=== PATIENT | male | born 1955 | race Caucasian/White ===

== ENCOUNTER 2017-09-12 11:16 | Emergency (ER) | payer BC ==
--- NOTE | 2017-09-12 12:30 | CR ---
EXAMINATION: Cervical and thoracic spine HISTORY: Pain COMPARISON: None TECHNIQUE: AP and lateral views obtained of the cervical and thoracic spine FINDINGS: There is minimal anterolisthesis of C4 on C5. Bone mineralization is normal. No fracture or acute oss eous abnormality. Prevertebral soft tissues appear normal. Mild marginal osteophytes are noted. The visualized thoracic spinal alignment is normal. The vertebral body heights appear maintained. Thi s spaces are preserved. Bone mineralization is normal. Mild marginal osteophytes. IMPRESSION: Mild degenerative changes without acute findings.
--- NOTE | 2017-09-12 12:51 | EDM.PDOC ---
ED HPI GENERAL MEDICAL PROBLEM - General Chief Complaint: Neck Problem Stated Complaint: NECK PAIN Time Seen by Provider: 09/12/17 11:31 Source of Information: Reports: Patient History Limitations: Reports: No Limitations - History of Present Illness INITIAL COMMENTS - FREE TEXT/NARRATIVE: HISTORY AND PHYSICAL: []61-year-old male presenting with concerns over neck discomfort History of Present Illness: []Admission has difficulty with his neck chronically he does exercises which generally keeps this in place. Patient rates his pain as a 1-2/10 he takes Yaneli aspirin without complete relief. Patient used to be on Xarelto and had been switched to warfarin he has not followed up with a primary care doctor for an appointment in a week with Dr. Quevedo. History of DVTs. 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 He experienced sitting for longer periods in the truck been normal and his neck is causing him pain. Review of Systems: As per history of present illness and below otherwise all systems reviewed and negative. Past medical history: As per history of present illness and as reviewed below otherwise noncontributory. Surgical history: As per history of present illness and as reviewed below otherwise noncontributory. Social history: No reported history of drug or alcohol abuse. Family history: As per history of present illness and as reviewed below otherwise noncontributory. Physical exam: Alert and oriented male who is answering questions appropriately no shortness of breath noted with full sentences. HEENT: Atraumatic, normocehpalic, pupils reactive, negative for conjunctival pallor or scleral icterus, mucous membranes moist, throat clear, neck supple, nontender, trachea midline. Mild tenderness noted with palpation to the vertebrae Lungs: Clear to auscultation, breath sounds equal bilaterally, chest non tender. Heart: S1S2, regular, negative for clicks, rubs, or JVD. Abdomen: Soft, nondistended, nontender. Negative for masses or hepatossplenmegaly. Negative for costovertebral tenderness. Pelvis: Stable nontender. Genitourinary: Deferred. Rectal: Deferred Extremities: Atraumatic, negative for cords or calf pain. Neurovascular unremarkable. Neuro: Awake, alert, oriented. Cranial nerves II through XII unremarkable. Cerebellum unremarkable. Motor and sensory unremarkable throughout. Exam nonfocal. Diagnostics: [X-ray cervical spine] X-ray thoracic spine Therapeutics: [] Impression: [Degenerative disc disease] Plan: [] Definitive disposition and diagnosis as appropriate pending reevaluation and review of above. Onset: Today, Sudden Duration: Chronic Location: Reports: Neck neck Pain Score (Numeric/FACES): 0 - Related Data Allergies Allergy/AdvReac Type Severity Reaction Status Date / Time cephalexin [From Keflex] Allergy Anaphylactic Verified 09/12/17 11:26 Shock Home Meds: Home Meds Cyclobenzaprine [Flexeril] 10 mg PO BEDTIME #10 tab 09/12/17 [Rx] Diclofenac Sodium [IJD: Diclofenac Sodium] 75 mg PO .TWICE DAILY W MEALS #20 tab.ec 09/12/17 [Rx] Rivaroxaban [Xarelto] 1 tab PO DAILY 09/12/17 [History] Warfarin [Coumadin] 1 mg PO DAILY 09/12/17 [History] amLODIPine [Norvasc] 5 mg PO DAILY 09/12/17 [History] Past Medical History HEENT History: Reports: None Cardiovascular History: Reports: Hypertension Respiratory History: Reports: None Gastrointestinal History: Reports: None Genitourinary History: Reports: None Musculoskeletal History: Reports: None Neurological History: Reports: None Psychiatric History: Reports: None Endocrine/Metabolic History: Reports: None Hematologic History: Reports: Other (See Below) Other Hematologic History: DVT Immunologic History: Reports: None Oncologic (Cancer) History: Reports: None Dermatologic History: Reports: None - Infectious Disease History Infectious Disease History: Reports: Chicken Pox, Measles, Mumps - Past Surgical History Head Surgeries/Procedures: Reports: None HEENT Surgical History: Reports: None Cardiovascular Surgical History: Reports: None Respiratory Surgical History: Reports: None GI Surgical History: Reports: None Male Surgical History: Reports: None Endocrine Surgical History: Reports: None Neurological Surgical History: Reports: None Musculoskeletal Surgical History: Reports: None Oncologic Surgical History: Reports: None Dermatological Surgical History: Reports: None Social & Family History - Family History Family Medical History: Noncontributory - Tobacco Use Smoking Status *Q: Never Smoker Second Hand Smoke Exposure: No - Caffeine Use Caffeine Use: Reports: None - Recreational Drug Use Recreational Drug Use: No ED ROS GENERAL - Review of Systems Review Of Systems: ROS reveals no pertinent complaints other than HPI. ED EXAM, UPPER BACK/NECK PAIN - Physical Exam Exam: See Below (see dictation) Course - Vital Signs Last Recorded V/S: Last Vital Signs Temp 36.0 C 09/12/17 11:29 Pulse 67 09/12/17 11:29 Resp 18 09/12/17 11:29 BP 147/104 H 09/12/17 11:29 Pulse Ox 96 09/12/17 11:29 Departure - Departure Time of Disposition: 12:54 Disposition: Home, Self-Care 01 Condition: Good Clinical Impression: Degenerative disc disease Qualifiers: Spinal region: unspecified cervical region Qualified Code(s): M50.30 - Other cervical disc degeneration, unspecified cervical region - Discharge Information Prescriptions: Cyclobenzaprine [Flexeril] 10 mg PO BEDTIME #10 tab Diclofenac Sodium [IJD: Diclofenac Sodium] 75 mg PO .TWICE DAILY W MEALS #20 tab.ec Instructions: Osteoarthritis, Degenerative Disk Disease Referrals: PCP,None [Primary Care Provider] - Forms: ED Department Discharge Additional Instructions: The following information is given to patients seen in the emergency department who are being discharged to home. This information is to outline your options for follow-up care. We provide all patients seen in our emergency department with a follow-up referral. The need for follow-up, as well as the timing and circumstances, are variable depending upon the specifics of your emergency department visit. If you don't have a primary care physician on staff, we will provide you with a referral. We always advise you to contact your personal physician following an emergency department visit to inform them of the circumstance of the visit and for follow-up with them and/or the need for any referrals to a consulting specialist. The emergency department will also refer you to a specialist when appropriate. This referral assures that you have the opportunity for followup care with a specialist. All of these measure are taken in an effort to provide you with optimal care, which includes your followup. Under all circumstances we always encourage you to contact your private physician who remains a resource for coordinating your care. When calling for followup care, please make the office aware that this follow-up is from your recent emergency room visit. If for any reason you are refused follow-up, please contact the [facility] emergency department at and asked to speak to the emergency department charge nurse. He was found to have some degenerative disc disease will likely lead to osteoarthritis Continue with the exercise program that you have initiated Medications of diclofenac for pain and Flexeril for muscle spasm before bed may be beneficial Keep your upcoming appointment with Dr. Lombardi.
== END 2017-09-12 13:04 | disposition home or self-care (01) ==
LOC: MW.ED 11:16
DX: M50.30 Other cervical disc degeneration, unspecified cervical region (principal); I10 Essential (primary) hypertension; Z88.1 Allergy status to other antibiotic agents; Z79.01 Long term (current) use of anticoagulants; Z79.899 Other long term (current) drug therapy; Z86.718 Personal history of other venous thrombosis and embolism
CPT/HCPCS: 72040; 72040-26; 72070; 72070-26; 99283

== ENCOUNTER 2017-10-17 23:21 | Emergency (ER) | payer BC ==
--- NOTE | 2017-10-17 23:42 | EDM.PDOC ---
ED HPI GENERAL MEDICAL PROBLEM - General Chief Complaint: ENT Problem Stated Complaint: TOOTH/EAR INFECTION Time Seen by Provider: 10/17/17 23:42 Source of Information: Reports: Patient - History of Present Illness INITIAL COMMENTS - FREE TEXT/NARRATIVE: HISTORY AND PHYSICAL: History of present illness: Patient presents with pain 2 out of 10 associated with the rear molar he does have a dental appointment scheduled for October 25 implants to follow with this, he is tender along the lower jawline is concerned about possible ear infection and as he has her discomfort no real pain but is just more aware as it feels full, on exam he does have an effusion no otitis media No fever nausea vomiting chills sweats no chest pain shortness breath headache dizziness palpitation no bowel or urine symptoms [] Review of systems: As per history of present illness and below otherwise all systems reviewed and negative. Past medical history: As per history of present illness and as reviewed below otherwise noncontributory. Surgical history: As per history of present illness and as reviewed below otherwise noncontributory. Social history: No reported history of drug or alcohol abuse. Family history: As per history of present illness and as reviewed below otherwise noncontributory. Physical exam: HEENT: Atraumatic, normocephalic, pupils reactive, negative for conjunctival pallor or scleral icterus, mucous membranes moist, throat clear, neck supple, nontender, trachea midline. Tender along right lower jawline with palpation consistent with early abscess formation dentition is intact grossly Lungs: Clear to auscultation, breath sounds equal bilaterally, chest nontender. Heart: S1S2, regular, negative for clicks, rubs, or JVD. Abdomen: Soft, nondistended, nontender. Negative for masses or hepatosplenomegaly. Negative for costovertebral tenderness. Pelvis: Stable nontender. Genitourinary: Deferred. Rectal: Deferred. Extremities: Atraumatic, negative for cords or calf pain. Neurovascular unremarkable. Neuro: Awake, alert, oriented. Cranial nerves II through XII unremarkable. Cerebellum unremarkable. Motor and sensory unremarkable throughout. Exam nonfocal. Diagnostics: [Clinical ] Therapeutics: [Oxacillin 500 mg by mouth 3 times a day #30 no refill ] Impression: [Dental pain Right ear effusion ] Definitive disposition and diagnosis as appropriate pending reevaluation and review of above. tooth Pain Score (Numeric/FACES): 2 - Related Data Allergies Allergy/AdvReac Type Severity Reaction Status Date / Time cephalexin [From Keflex] Allergy Anaphylactic Verified 10/17/17 23:41 Shock Home Meds: Home Meds Diclofenac Sodium [IJD: Diclofenac Sodium] 75 mg PO .TWICE DAILY W MEALS #20 tab.ec 09/12/17 [Rx] Rivaroxaban [Xarelto] 1 tab PO DAILY 09/12/17 [History] amLODIPine [Norvasc] 5 mg PO DAILY 09/12/17 [History] Past Medical History HEENT History: Reports: None Cardiovascular History: Reports: Hypertension Respiratory History: Reports: None Gastrointestinal History: Reports: None Genitourinary History: Reports: None Musculoskeletal History: Reports: None Neurological History: Reports: None Psychiatric History: Reports: None Endocrine/Metabolic History: Reports: None Hematologic History: Reports: Other (See Below) Other Hematologic History: DVT Immunologic History: Reports: None Oncologic (Cancer) History: Reports: None Dermatologic History: Reports: None - Infectious Disease History Infectious Disease History: Reports: Chicken Pox, Measles, Mumps - Past Surgical History Head Surgeries/Procedures: Reports: None HEENT Surgical History: Reports: None Cardiovascular Surgical History: Reports: None Respiratory Surgical History: Reports: None GI Surgical History: Reports: None Male Surgical History: Reports: None Endocrine Surgical History: Reports: None Neurological Surgical History: Reports: None Musculoskeletal Surgical History: Reports: None Oncologic Surgical History: Reports: None Dermatological Surgical History: Reports: None Social & Family History - Family History Family Medical History: Noncontributory - Tobacco Use Smoking Status *Q: Never Smoker Second Hand Smoke Exposure: No - Caffeine Use Caffeine Use: Reports: None - Recreational Drug Use Recreational Drug Use: No ED ROS GENERAL - Review of Systems Review Of Systems: ROS reveals no pertinent complaints other than HPI. ED EXAM, GENERAL - Physical Exam Exam: See Below Course - Vital Signs Last Recorded V/S: Last Vital Signs Temp 98 F 10/17/17 23:21 Pulse 55 L 10/17/17 23:21 Resp 18 10/17/17 23:21 BP 155/84 H 10/17/17 23:21 Pulse Ox 97 10/17/17 23:21 Departure - Departure Time of Disposition: 23:47 Disposition: Home, Self-Care 01 Condition: Good Clinical Impression: Pain, dental - Discharge Information Referrals: Shelton Lombardi MD [Primary Care Provider] - Forms: ED Department Discharge Additional Instructions: Medication as prescribed Follow-up with dentist as scheduled Return if symptoms persist or worsen or new concerning symptoms develop The following information is given to patients seen in the emergency department who are being discharged to home. This information is to outline your options for follow-up care. We provide all patients seen in our emergency department with a follow-up referral. The need for follow-up, as well as the timing and circumstances, are variable depending upon the specifics of your emergency department visit. If you don't have a primary care physician on staff, we will provide you with a referral. We always advise you to contact your personal physician following an emergency department visit to inform them of the circumstance of the visit and for follow-up with them and/or the need for any referrals to a consulting specialist. The emergency department will also refer you to a specialist when appropriate. This referral assures that you have the opportunity for follow-up care with a specialist. All of these measure are taken in an effort to provide you with optimal care, which includes your follow-up. Under all circumstances we always encourage you to contact your private physician who remains a resource for coordinating your care. When calling for follow-up care, please make the office aware that this follow-up is from your recent emergency room visit. If for any reason you are refused follow-up, please contact the [facility] emergency department at and asked to speak to the emergency department charge nurse.
== END 2017-10-17 23:58 | disposition home or self-care (01) ==
LOC: MW.ED 23:21
DX: K08.89 Other specified disorders of teeth and supporting structures (principal); H65.91 Unspecified nonsuppurative otitis media, right ear; Z88.1 Allergy status to other antibiotic agents; Z79.899 Other long term (current) drug therapy
CPT/HCPCS: 99282

== ENCOUNTER 2020-10-03 06:31 | Emergency (ER) | payer BC ==
--- NOTE | 2020-10-03 07:14 | EDM.PDOC ---
ED HPI GENERAL MEDICAL PROBLEM - General Chief Complaint: Respiratory Problem Stated Complaint: COUGH Time Seen by Provider: 10/03/20 07:14 Source of Information: Reports: Patient History Limitations: Reports: No Limitations - History of Present Illness INITIAL COMMENTS - FREE TEXT/NARRATIVE: 64 Male past medical history hypertension presents for cough. Patient notes that he was recently started on amoxicillin for an abscessed tooth and concomitant bronchitis. He notes that last night he was unable to sleep secondary to cough. He has tried Mucinex and Altoids. He denies any shortness of breath, chest pain, fevers. - Related Data Allergies Allergy/AdvReac Type Severity Reaction Status Date / Time cephalexin [From Keflex] Allergy Anaphylactic Verified 10/03/20 06:45 Shock Home Meds: Home Meds Rivaroxaban [Xarelto] 20 mg PO DAILY 09/12/17 [History] amLODIPine [Norvasc] 10 mg PO DAILY 09/12/17 [History] Amoxicillin 500 mg PO TID 10/03/20 [History] Benzonatate [Tessalon Perle] 100 mg PO TID PRN #20 capsule 10/03/20 [Rx] Past Medical History HEENT History: Reports: None Cardiovascular History: Reports: Blood Clots/VTE/DVT, Hypertension Respiratory History: Reports: Bronchitis, Recurrent, Pneumonia, Recurrent Gastrointestinal History: Reports: None Genitourinary History: Reports: None Musculoskeletal History: Reports: None Neurological History: Reports: None Psychiatric History: Reports: None Endocrine/Metabolic History: Reports: None Hematologic History: Reports: Other (See Below) Other Hematologic History: DVT Immunologic History: Reports: None Oncologic (Cancer) History: Reports: None Dermatologic History: Reports: None Other Dermatologic History: stitches to R arm and L knee - Infectious Disease History Infectious Disease History: Reports: Chicken Pox, Measles, Mumps - Past Surgical History Head Surgeries/Procedures: Reports: None HEENT Surgical History: Reports: None, Tonsillectomy Cardiovascular Surgical History: Reports: None Respiratory Surgical History: Reports: None GI Surgical History: Reports: None Male Surgical History: Reports: None Endocrine Surgical History: Reports: None Neurological Surgical History: Reports: None Musculoskeletal Surgical History: Reports: None Oncologic Surgical History: Reports: None Dermatological Surgical History: Reports: None Social & Family History - Family History Family Medical History: No Pertinent Family History - Caffeine Use Caffeine Use: Reports: Coffee - Recreational Drug Use Recreational Drug Use: No ED ROS GENERAL - Review of Systems Review Of Systems: Comprehensive ROS is negative, except as noted in HPI. ED EXAM, GENERAL - Physical Exam Exam: See Below Exam Limited By: No Limitations General Appearance: Alert, WD/WN, No Apparent Distress Ears: Hearing Grossly Normal Throat/Mouth: Normal Voice, No Airway Compromise Head: Atraumatic, Normocephalic Neck: Normal Inspection Respiratory/Chest: No Respiratory Distress, Lungs Clear, Normal Breath Sounds, No Accessory Muscle Use Cardiovascular: Normal Peripheral Pulses, Regular Rate, Rhythm Extremities: Normal Inspection Neurological: Alert, Normal Cognition, Normal Gait Psychiatric: Normal Affect, Normal Mood Skin Exam: Warm, Dry, Intact, Normal Color Course - Vital Signs Last Recorded V/S: Last Vital Signs Temp 98.7 F 10/03/20 06:48 Pulse 64 10/03/20 06:48 Resp 18 10/03/20 06:48 BP 149/68 H 10/03/20 06:48 Pulse Ox 96 10/03/20 06:48 - Re-Assessments/Exams Free Text/Narrative Re-Assessment/Exam: 10/03/20 07:16 We will follow-up chest x-ray. Anticipate discharge home. Departure - Departure Time of Disposition: 07:31 Disposition: Home, Self-Care 01 Condition: Good Clinical Impression: Bronchitis - Discharge Information Prescriptions: Benzonatate [Tessalon Perle] 100 mg PO TID PRN #20 capsule PRN Reason: Cough Instructions: Acute Bronchitis, Adult Referrals: PCP,None [Primary Care Provider] - Forms: ED Department Discharge Additional Instructions: Your chest x-ray does not show any signs of pneumonia. I would continue the antibiotic that your other physician prescribed you. I also sent a prescription for a medication called Tessalon Perles which can help with the symptoms of cough although it is not particularly effective as we do not have very good cough medications. He can also try hot tea with honey. The following information is given to patients seen in the emergency department who are being discharged to home. This information is to outline your options for follow-up care. We provide all patients seen in our emergency department with a follow-up referral. The need for follow-up, as well as the timing and circumstances, are variable depending upon the specifics of your emergency department visit. If you don't have a primary care physician on staff, we will provide you with a referral. We always advise you to contact your personal physician following an emergency department visit to inform them of the circumstance of the visit and for follow-up with them and/or the need for any referrals to a consulting specialist. The emergency department will also refer you to a specialist when appropriate. This referral assures that you have the opportunity for follow-up care with a specialist. All of these measure are taken in an effort to provide you with optimal care, which includes your follow-up. Under all circumstances we always encourage you to contact your private physician who remains a resource for coordinating your care. When calling for follow-up care, please make the office aware that this follow-up is from your recent emergency room visit. If for any reason you are refused follow-up, please contact the [facility] Emergency Department at and asked to speak to the emergency department charge nurse. Please follow up with your primary care physician. If you do not have a primary care physician, see below: [facility] [address] [place] [id number] [facility] [address] [place] [id number] [facility] [address] [place] [id number] Sepsis Event Note (ED) - Evaluation Sepsis Screening Result: No Definite Risk - Focused Exam Vital Signs: Vital Signs Temp Pulse Resp BP Pulse Ox 10/03/20 06:48 98.7 F 64 18 149/68 H 96
--- NOTE | 2020-10-03 07:28 | CR ---
INDICATION: Cough. TECHNIQUE: PA and lateral. COMPARISON: None. FINDINGS: Lungs and pleural spaces clear. Heart size and pulmonary vasculature within normal limits. No significant osseous abnormality. IMPRESSION: Negative chest. Dictated by Raimundo Hanson MD @ Oct 03 2020 7:27AM Signed by Dr. Raimundo Hanson @ Oct 03 2020 7:27AM
== END 2020-10-03 07:40 | disposition home or self-care (01) ==
LOC: MW.ED 06:31
DX: J40 Bronchitis, not specified as acute or chronic (principal); I10 Essential (primary) hypertension; Z79.01 Long term (current) use of anticoagulants; Z79.899 Other long term (current) drug therapy; Z88.1 Allergy status to other antibiotic agents; Z86.718 Personal history of other venous thrombosis and embolism
CPT/HCPCS: 71046; 71046-26; 99282; 99283-25

== ENCOUNTER 2020-10-15 23:44 | Emergency (ER) | payer BC ==
--- NOTE | 2020-10-16 00:46 | EDM.PDOC ---
ED HPI GENERAL MEDICAL PROBLEM - General Chief Complaint: Respiratory Problem Stated Complaint: POSSIBLE BRONCHITIS,COUGHING,ASTHMA Time Seen by Provider: 10/16/20 00:31 - History of Present Illness INITIAL COMMENTS - FREE TEXT/NARRATIVE: History of present illness: [] 2 and half weeks ago the patient felt like he had bronchitis. He was due for tooth cleaning so he called his dentist. The dentist put him on antibiotics for 10 days. The dentist saw him 12 days ago. The dentist arranged for some dental repair after he finished the antibiotics. That is coming up next week. The patient felt like he had bronchitis at that time and felt like he was doing a little better. Tonight he suddenly felt like he had phlegm in his throat and could not get it out. He could not get a good breath and is well had to work real hard for 5 minutes. He was eventually able to clear that. He is drinking plenty of fluids and thinks that his bronchitis is better but he is worried there may be more phlegm and may be more episodes of feeling like he is choking. Review of systems: As per history of present illness and below otherwise all systems reviewed and negative. Past medical history: As per history of present illness and as reviewed below otherwise noncontributory. Surgical history: As per history of present illness and as reviewed below otherwise noncontributory. Social history: No reported history of drug or alcohol abuse. Family history: As per history of present illness and as reviewed below otherwise noncontributory. Physical exam: Constitutional - well developed, well-nourished and in no acute distress HEENT - normocephalic, no evidence of trauma - external nose and mouth normal - no mass in neck and no JVD - mucosae moist EYES - full EOM, PERRL, no icterus - no evidence of inflammation, injection, or drainage Respiratory - no respiratory distress, equal bilateral expansion, lungs clear to auscultation and no abnormal lung sounds Cardiovascular - Regular Rhythm with S1 and S2 appreciated and no murmur, gallop or rub. GI - abdomen soft without distension or organomegaly - normal bowel sounds - no guard or rebound Musculoskeletal no gross deformity of long bones or joints - no tenderness, swelling or edema Neurologic - Alert and oriented times four - CN II-XII grossly intact - motor sensory and coordination symmetrically normal Psychiatric - appropriate mood and affect with normal thought content Diagnostics: [] Therapeutics: [] Impression: [] Plan: [] Definitive disposition and diagnosis as appropriate pending reevaluation and review of above. - Related Data Allergies Allergy/AdvReac Type Severity Reaction Status Date / Time cephalexin [From Keflex] Allergy Anaphylactic Verified 10/16/20 00:19 Shock Home Meds: Home Meds Rivaroxaban [Xarelto] 20 mg PO DAILY 09/12/17 [History] amLODIPine [Norvasc] 10 mg PO DAILY 09/12/17 [History] Amoxicillin 500 mg PO TID 10/03/20 [History] Benzonatate [Tessalon Perle] 100 mg PO TID PRN #20 capsule 10/03/20 [Rx] Past Medical History HEENT History: Reports: None Cardiovascular History: Reports: Blood Clots/VTE/DVT, Hypertension Respiratory History: Reports: Bronchitis, Recurrent, Pneumonia, Recurrent Gastrointestinal History: Reports: None Genitourinary History: Reports: None Musculoskeletal History: Reports: None Neurological History: Reports: None Psychiatric History: Reports: None Endocrine/Metabolic History: Reports: None Hematologic History: Reports: Other (See Below) Other Hematologic History: DVT Immunologic History: Reports: None Oncologic (Cancer) History: Reports: None Dermatologic History: Reports: None Other Dermatologic History: stitches to R arm and L knee - Infectious Disease History Infectious Disease History: Reports: Chicken Pox, Measles, Mumps - Past Surgical History Head Surgeries/Procedures: Reports: None HEENT Surgical History: Reports: None, Tonsillectomy Cardiovascular Surgical History: Reports: None Respiratory Surgical History: Reports: None GI Surgical History: Reports: None Male Surgical History: Reports: None Endocrine Surgical History: Reports: None Neurological Surgical History: Reports: None Musculoskeletal Surgical History: Reports: None Oncologic Surgical History: Reports: None Dermatological Surgical History: Reports: None Social & Family History - Family History Family Medical History: No Pertinent Family History - Tobacco Use Tobacco Use Status *Q: Never Tobacco User - Caffeine Use Caffeine Use: Reports: None - Recreational Drug Use Recreational Drug Use: No ED ROS GENERAL - Review of Systems Review Of Systems: Comprehensive ROS is negative, except as noted in HPI. ED EXAM, GENERAL - Physical Exam Exam: See Below Free Text/Narrative:: My physical exam is in the HPI Course - Vital Signs Last Recorded V/S: Last Vital Signs Temp 36.4 C 10/16/20 00:21 Pulse 68 10/16/20 00:21 Resp 20 10/16/20 00:21 BP 133/77 10/16/20 00:21 Pulse Ox 96 10/16/20 00:21 - Orders/Labs/Meds Orders: Active Orders 24 hr Category Date Time Status RT Post Treatment Assessment [RC] Click to Edit Care 10/16/20 01:26 Ordered RT Pre-Treatment Assessment [RC] Click to Edit Care 10/16/20 01:26 Ordered Albuterol [Proventil HFA] Med 10/16/20 01:25 Ordered 8 gm INH Q4H PRN Departure - Departure Time of Disposition: Disposition: Home, Self-Care 01 Condition: Good Clinical Impression: Mucus plugging of bronchi - Discharge Information Instructions: Acute Bronchitis, Adult, [id number] Referrals: PCP,None [Primary Care Provider] - Forms: ED Department Discharge Additional Instructions: [facility] - Primary Care [address] [place] [address] [id number] Plenty of fluids. Use the inhaler if you have trouble breathing. You can use it up to every 4 hours as needed. The following information is given to patients seen in the emergency department who are being discharged to home. This information is to outline your options for follow-up care. We provide all patients seen in our emergency department with a follow-up referral. The need for follow-up, as well as the timing and circumstances, are variable depending upon the specifics of your emergency department visit. If you don't have a primary care physician on staff, we will provide you with a referral. We always advise you to contact your personal physician following an emergency department visit to inform them of the circumstance of the visit and for follow-up with them and/or the need for any referrals to a consulting specialist. The emergency department will also refer you to a specialist when appropriate. This referral assures that you have the opportunity for follow-up care with a specialist. All of these measure are taken in an effort to provide you with optimal care, which includes your follow-up. Under all circumstances we always encourage you to contact your private physician who remains a resource for coordinating your care. When calling for follow-up care, please make the office aware that this follow-up is from your recent emergency room visit. If for any reason you are refused follow-up, please contact the [facility] Emergency Department at and asked to speak to the emergency department charge nurse. Sepsis Event Note (ED) - Evaluation Sepsis Screening Result: No Definite Risk - Focused Exam Vital Signs: Vital Signs Temp Pulse Resp BP Pulse Ox 10/16/20 00:21 36.4 C 68 20 133/77 96 - My Orders Last 24 Hours: My Active Orders 10/16/20 01:25 Albuterol [Proventil HFA] 8 gm INH Q4H PRN 10/16/20 01:26 RT Post Treatment Assessment [RC] Click to Edit RT Pre-Treatment Assessment [RC] Click to Edit - Assessment/Plan Last 24 Hours: My Active Orders 10/16/20 01:25 Albuterol [Proventil HFA] 8 gm INH Q4H PRN 10/16/20 01:26 RT Post Treatment Assessment [RC] Click to Edit RT Pre-Treatment Assessment [RC] Click to Edit
--- NOTE | 2020-10-16 01:10 | CR ---
Indication: Cough and choking sensation Technique: Chest 1 view Comparison: Chest x-ray 10/03/2020 Findings/Impression: Cardiovascular and mediastinum: Normal heart size with aortic tortuosity. Lungs and pleural space: No pleural effusion or pneumothorax. Minimal discoid atelectasis right lung base. Bones and soft tissues: No acute findings. Dictated by Cezar Greenberg MD @ 10/16/2020 1:09:[address] Cezar Greenberg @ Oct 16 2020 1:09AM
[2020-10-16] MEDS ORDERED: Albuterol 6.7 GM Inhaler INH PRN (01:25)
[2020-10-16] MEDS ORDERED: Albuterol 8 GM Inhaler INH ONE (01:29)
== END 2020-10-16 01:35 | disposition home or self-care (01) ==
LOC: MW.ED 23:44
DX: T17.590A Other foreign object in bronchus causing asphyxiation, initial encounter (principal); I10 Essential (primary) hypertension; Z86.718 Personal history of other venous thrombosis and embolism; Z79.01 Long term (current) use of anticoagulants; Z88.1 Allergy status to other antibiotic agents
CPT/HCPCS: 71045; 71045-26; 99282; 99285-25; A9270-GY

== ENCOUNTER 2022-01-17 07:59 | Emergency (ER) | payer MEDICARE, OTHER ==
[2022-01-17] MEDS ORDERED: Sodium Chloride 0.9% 2.5 ML Syringe FLUSH PRN (08:10)
[2022-01-17] MEDS ORDERED: Sodium Chloride 0.9% 10 ML Syringe FLUSH PRN (08:10)
[2022-01-17] MEDS ORDERED: Lactated Ringers 1,000 ML IV ONE ×2 (08:42→12:17)
[2022-01-17 09:23] LABS: CARBON DIOXIDE,CO2 24.7 mmol/L (21.0-32.0); POTASSIUM,K 3.9 mmol/L (3.5-5.1)
[2022-01-17] MEDS ORDERED: Ibuprofen 400 MG Tab PO ONE (12:15)
[2022-01-17] MEDS ORDERED: Acetaminophen 325 MG Tab PO ONE (12:15)
== END 2022-01-17 14:55 | disposition home or self-care (01) ==
LOC: MW.ED 07:59
DX: R50.9 Fever, unspecified (principal); Z88.1 Allergy status to other antibiotic agents; Z79.899 Other long term (current) drug therapy; Z86.16 Personal history of COVID-19; Z20.822 Contact with and (suspected) exposure to COVID-19
CPT/HCPCS: 36415; 80053; 85025; 93005; 96360; 96361; 99283; A9270; J3490; J7120; U0002; 93010

== ENCOUNTER 2022-01-23 07:23 | Emergency (ER) | payer MEDICARE, OTHER ==
[2022-01-23 09:40] LABS: CARBON DIOXIDE,CO2 27.2 mmol/L (21.0-32.0); POTASSIUM,K 4.9 mmol/L (3.5-5.1)
== END 2022-01-23 12:52 | disposition home or self-care (01) ==
LOC: MW.ED 07:23
DX: L03.115 Cellulitis of right lower limb (principal); I10 Essential (primary) hypertension; Z88.1 Allergy status to other antibiotic agents; Z79.899 Other long term (current) drug therapy; Z86.16 Personal history of COVID-19; Z20.822 Contact with and (suspected) exposure to COVID-19
CPT/HCPCS: 36415; 80053; 83605; 83735; 85025; 85379; 85610; 87040; 93971; 99284; U0002; 99283

== ENCOUNTER 2022-07-23 17:54 | Emergency (ER) | payer MEDICARE, OTHER | END 2022-07-23 20:26 | disposition home or self-care (01) | LOC: MW.ED 17:54 | DX: J20.9 Acute bronchitis, unspecified (principal); Z88.1 Allergy status to other antibiotic agents; Z79.01 Long term (current) use of anticoagulants; Z86.16 Personal history of COVID-19 | CPT/HCPCS: 71046; 71046-26; 81003; 99285 ==

== ENCOUNTER 2023-03-08 06:34 | Day surgery (SDC) | payer MEDICARE, OTHER ==
[~2023-03-08 06:34] MED LIST: Lactated Ringers 1,000 ML IV SCH
[2023-03-08] MEDS ORDERED: Lidocaine 2% 5 ML SDV ONE (07:38)
[2023-03-08] MEDS ORDERED: Propofol 200 MG/20 ML SDV ONE ×3 (07:38→08:14)
== END 2023-03-08 09:25 | disposition home or self-care (01) ==
LOC: MW.SDS 06:34
PROVIDERS: ATTEND Surgery
DX: Z12.11 Encounter for screening for malignant neoplasm of colon (principal); D12.2 Benign neoplasm of ascending colon; D12.6 Benign neoplasm of colon, unspecified; K64.8 Other hemorrhoids; E11.9 Type 2 diabetes mellitus without complications; E78.5 Hyperlipidemia, unspecified; I10 Essential (primary) hypertension; E66.01 Morbid (severe) obesity due to excess calories; Z88.1 Allergy status to other antibiotic agents; Z88.8 Allergy status to other drugs, medicaments and biological substances; Z79.01 Long term (current) use of anticoagulants; Z79.84 Long term (current) use of oral hypoglycemic drugs; Z79.899 Other long term (current) drug therapy; Z86.718 Personal history of other venous thrombosis and embolism
CPT/HCPCS: 45380; 45385; 82947; J2704; J7120; 00811; 88305; 88341; 88342; J3490

== ENCOUNTER 2023-08-09 04:58 | Emergency (ER) | payer MEDICARE, OTHER ==
[2023-08-09 05:35] LABS: BASOPHILS ABSOLUTE AUTO 0.04 K/uL (0.00-0.20); BASOPHILS PERCENT AUTO 0.7 % (0.0-1.0); EOSINOPHILS ABSOLUTE AUTO 0.19 K/uL (0.00-0.45); EOSINOPHILS PERCENT AUTO 3.3 % (0.0-6.0); HEMATOCRIT 41.5 % (42.0-52.0); HEMOGLOBIN 13.8 g/dL (14.0-18.0); IMMATURE GRAN ABSOLUTE AUTO 0.01 K/uL (0.00-0.05); IMMATURE GRAN PERCENT AUTO 0.2 % (0.0-0.4); MEAN CORPUSCULAR HEMOGLOBIN 29.8 pg (28.0-32.0); MEAN CORPUSCULAR HGB CONC 33.3 g/dL (32.0-36.0); MEAN CORPUSCULAR VOLUME 89.6 fL (83.0-99.0); MONOCYTES ABSOLUTE AUTO 0.42 K/uL (0.00-0.80); MONOCYTES PERCENT AUTO 7.3 % (0.0-8.0); NEUTROPHILS ABSOLUTE AUTO 3.86 K/uL (1.80-7.70); NEUTROPHILS PERCENT AUTO 67.5 % (41.0-71.0); PLATELET COUNT,PLT 174 K/uL (150-400); RED BLOOD CELL COUNT 4.63 M/uL (4.52-5.90); WHITE BLOOD CELL COUNT,WBC 5.72 K/uL (3.9-11.3)
[2023-08-09 05:51] LABS: INR 1.13 (0.86-1.11); PTT,PARTIAL THROMBOPLSTIN TIME 30.9 SEC (23.9-30.7)
[2023-08-09 05:53] LABS: D-DIMER QUANTITATIVE < 0.19 mg/L FEU (0.00-0.50)
[2023-08-09 05:59] LABS: A/G RATIO 0.9 (0.9-1.6); ALBUMIN 3.3 g/dL (3.4-5.0); BILIRUBIN TOTAL 0.6 mg/dL (0.2-1.0); CALCIUM 8.2 mg/dL (8.5-10.1); CREATININE 1.3 mg/dL (0.8-1.3); EST CRCL DRUG DOSING (CG) 64.11 mL/min; POTASSIUM,K 4.1 mmol/L (3.5-5.1); PROTEIN TOTAL,TP 6.8 g/dL (6.4-8.2)
== END 2023-08-09 06:21 | disposition home or self-care (01) ==
LOC: MW.ED 04:58
DX: M79.601 Pain in right arm (principal); Z86.16 Personal history of COVID-19; Z88.8 Allergy status to other drugs, medicaments and biological substances; Z79.899 Other long term (current) drug therapy
CPT/HCPCS: 36415; 80053; 84484; 85025; 85379; 85610; 85730; 93010; 99282; 99283

== ENCOUNTER 2024-06-09 11:09 | Emergency (ER) | payer MEDICARE, OTHER | END 2024-06-09 13:31 | disposition home or self-care (01) | LOC: MW.ED 11:09 | DX: B34.9 Viral infection, unspecified (principal); I10 Essential (primary) hypertension; E78.00 Pure hypercholesterolemia, unspecified; E11.9 Type 2 diabetes mellitus without complications; Z88.1 Allergy status to other antibiotic agents; Z88.8 Allergy status to other drugs, medicaments and biological substances; Z79.899 Other long term (current) drug therapy; Z75.8 Other problems related to medical facilities and other health care | CPT/HCPCS: 71046; 71046-26; 87428-QW; 99283 ==